=== PATIENT | male | born 1970 | race Caucasian/White ===

== ENCOUNTER 2023-01-27 05:53 | Emergency (ER) | payer OTHER, MEDICAID, SELFPAY ==
[2023-01-27] VITALS (27 sets, daily range): BP systolic 116–156; BP diastolic 60–83; PULSE 69–104; RESP 16; TEMP 36.8–37.6; O2SAT 94–100; BMI 27.5
--- NOTE | 2023-01-27 06:08 | DI.CT.S_ITS ---
PROCEDURE: CT ABDOMEN PELVIS W CON INDICATIONS: rectal pain and drainage after colectomy TECHNIQUE: After the administration of oral and IV contrast, axial sections were acquired from the lung bases to the pubic symphysis. Coronal and sagittal reformats were performed. For radiation dose reduction, the following was used: automated exposure control, adjustment of mA and/or kV according to patient size. COMPARISON: [facility], CT, CT ABDOMEN PELVIS WITH CONTRAST, 01/12/2023, 13:52. [facility], CT, CT ABDOMEN PELVIS WITH CONTRAST, 01/19/2023, 15:09. FINDINGS: Image quality: Excellent. Lung bases: Unremarkable. Heart: Heart size is enlarged, no pericardial effusion is seen. ABDOMEN: Liver: Unremarkable. Gallbladder: Tiny gallstones are again seen in dependent portion of gallbladder. No gallbladder wall thickening. Biliary ducts: No biliary ductal dilatation. Pancreas: Unremarkable. Spleen: Unremarkable. Adrenal Glands: Unremarkable. Kidneys and Ureters: No hydronephrosis or hydroureter.. Stomach and Bowel: Again noted are postsurgical changes from partial bowel resection and right-sided ostomy unchanged from prior study. Surgical anastomosis is no rectum unchanged from prior study. Fluid is noted in presacral space not significantly changed from prior study. Oral contrast is seen in stomach lumen and small bowel loops. No evidence of obstruction. Small bowel wall thickening in mid to left abdomen is seen. No other area of abnormal bowel wall thickening. Peritoneum: No peritoneal free air. No discrete drainable abscess collection. Ventral Wall: No hernia. Small amount of fluid within anterior pelvic wall is seen. Abdominal Nodes: No retroperitoneal or mesenteric adenopathy by size criteria. Small periaortic lymph nodes are seen measures up to 6 mm in size. Vessels: Aorta and inferior vena cava are normal in size. Mild atherosclerotic calcifications are seen in abdominal aorta. PELVIS: Pelvic Organs: Unremarkable. Bladder: Unremarkable. Pelvic Nodes: No enlarged lymph nodes. Miscellaneous: Small bilateral inguinal hernia are seen containing fat. A tiny focus of free air in right inguinal herniation sac is seen. Bones: No suspicious bony lesions. No acute vertebral body compression fracture. IMPRESSION: 1. Stable postsurgical changes from prior partial bowel resection and right-sided ostomy construction. Surgical anastomosis in rectal sigmoid region is grossly intact and unchanged in appearance compared to prior study. Moderate amount of presacral fluid also unchanged from prior study. No peripherally enhancing abscess collection is seen. Tiny pocket of free air within right inguinal herniation sac likely represent at [facility] from recent surgery. No other area of peritoneal free fluid or free air is seen. 2. No evidence of bowel obstruction. Predominantly mid to left-sided small bowel wall thickening concerning for enteritis. 3. Other findings as described above, not significantly changed from prior studies. Dictated by: Prasanna Carpio M.D. on 01/27/2023 at 8:43 Approved by: Prasanna Carpio M.D. on 01/27/2023 at 8:52
--- NOTE | 2023-01-27 06:10 | ED_ITS ---
HPI - Abdominal Pain <Leticia Middleton DO - Last Filed: 01/27/23 22:18> General Chief Complaint: GI Bleed Stated Complaint: Rectal Pain Time Seen by Provider: 01/27/23 06:08 History of Present Illness HPI narrative: Patient 52-year-old male history of colorectal cancer status post chemoradiation with colectomy and temporary ostomy presents today with rectal draining fever chills and increased rectal pain. Surgery was 3 weeks ago. He was seen evaluated at [facility] Emergency Department 1 week ago. He was noted to have leukocytosis he had some fluid which was thought to be postoperative. He continues to have increasing pain. His surgeon and treatment were all done at [facility]. Today he is here for another evaluation. He denies any abdominal pain nausea or vomiting. No chest pain or shortness of breath. He reports that the rectal drainage was mucousy but now it is clear and sometimes bloody Related Data Home Medications Medication Instructions Recorded Confirmed acetaminophen 500 mg tablet 1,000 mg PO Q6HR PRN Pain (Scale 01/27/23 01/27/23 Score 1-3) amoxicillin 875 mg-potassium 1 tab PO BID 01/27/23 01/27/23 clavulanate 125 mg tablet atorvastatin 40 mg tablet 40 mg PO BEDTIME 01/27/23 01/27/23 bupropion HCl 150 mg tablet,12 hr 150 mg PO BID 01/27/23 01/27/23 sustained-release methocarbamol 500 mg tablet 500 mg PO TID PRN Muscle Spasm 01/27/23 01/27/23 nitroglycerin 0.4 mg sublingual See Rx Instructions .Route .COMPLEX 01/27/23 01/27/23 tablet nystatin 100,000 unit/mL oral 5 ml PO QID 01/27/23 01/27/23 suspension ticagrelor 90 mg tablet (Brilinta) 90 mg PO BID 01/27/23 01/27/23 Allergies Allergy/AdvReac Type Severity Reaction Status Date / Time hydrocodone Allergy Severe ITCHING Verified 01/27/23 06:47 oxycodone Allergy Severe ITCHING Verified 01/27/23 06:48 Review of Systems <DO Kamla Cordova Last Filed: 01/27/23 22:18> Review of Systems ROS Unobtainable: All systems reviewed & are unremarkable except as noted in HPI and below Exam <Leticia Middleton DO - Last Filed: 01/27/23 22:18> Initial Vital Signs Initial Vital Signs: Vital Signs Pulse Rate 92 H 01/27/23 05:56 Pulse Oximetry 98 01/27/23 05:56 GENERAL: Alert pleasant 52-year-old male and in no acute distress. HEENT: Head atraumatic,EOMI, pupils reactive, face symmetric, moist mucous membranes CARDIOVASCULAR: Regular rate and rhythm without murmurs, rubs or gallops. RESPIRATORY: Breath sounds equal bilaterally, no wheezes rales or rhonchi. ABDOMEN: Soft, nontender. Normoactive bowel sounds all 4 quadrants. No guarding or rebound. EXTREMITIES: Normal range of motion, no clubbing or edema. Neurovascularly intact NEUROLOGICAL: Alert and oriented x4. SKIN: Warm, dry, no laceration, no petechiae, no rashes or lesions. <Isaias Marie DO - Last Filed: 01/27/23 14:37> Initial Vital Signs Initial Vital Signs: Vital Signs Pulse Rate 92 H 01/27/23 05:56 Pulse Oximetry 98 01/27/23 05:56 Course <Leticia Middleton DO - Last Filed: 01/27/23 22:18> Orders Ordered: Discontinued Medications Acetaminophen (Acetaminophen 325 Mg Tablet) 650 mg PO NOW ONE Stop: 01/27/23 12:48 Last Admin: 01/27/23 12:57 Dose: 650 mg Documented By: LYLA Cyclobenzaprine HCl (Cyclobenzaprine 10 Mg Tablet) 10 mg PO NOW ONE Stop: 01/27/23 09:40 Last Admin: 01/27/23 09:48 Dose: 10 mg Documented By: AT Hydromorphone HCl (Hydromorphone 1 Mg Inj) 1 mg IV NOW ONE Stop: 01/27/23 06:09 Last Admin: 01/27/23 06:30 Dose: 1 mg Documented By: JA Hydromorphone HCl (Hydromorphone 1 Mg Inj) 1 mg IV NOW ONE Stop: 01/27/23 07:46 Last Admin: 01/27/23 07:50 Dose: 1 mg Documented By: LYLA Hydromorphone HCl (Hydromorphone 1 Mg Inj) 1 mg IV NOW ONE Stop: 01/27/23 09:11 Last Admin: 01/27/23 09:18 Dose: 1 mg Documented By: LYLA Hydromorphone HCl (Hydromorphone 0.5 Mg Inj) 0.5 mg IV NOW ONE Stop: 01/27/23 12:37 Last Admin: 01/27/23 12:40 Dose: 0.5 mg Documented By: LYLA Ceftriaxone Sodium 1,000 mg/ (Sodium Chloride) 100 mls @ 200 mls/hr IV NOW ONE Stop: 01/27/23 09:21 Last Infusion: 01/27/23 10:26 Dose: 0 mls/hr Documented By: Admin: 01/27/23 09:33 Dose: 200 mls/hr Documented By: DEWAYNE Vital Signs Vital signs: Vital Signs - 8 hr 01/27/23 14:30 01/27/23 14:30 Pulse Rate 85 Blood Pressure 129/73 Pulse Oximetry 97 <Isaias Marie DO - Last Filed: 01/27/23 14:37> Orders Ordered: Discontinued Medications Acetaminophen (Acetaminophen 325 Mg Tablet) 650 mg PO NOW ONE Stop: 01/27/23 12:48 Last Admin: 01/27/23 12:57 Dose: 650 mg Documented By: LYLA Cyclobenzaprine HCl (Cyclobenzaprine 10 Mg Tablet) 10 mg PO NOW ONE Stop: 01/27/23 09:40 Last Admin: 01/27/23 09:48 Dose: 10 mg Documented By: FLORENCIA Hydromorphone HCl (Hydromorphone 1 Mg Inj) 1 mg IV NOW ONE Stop: 01/27/23 06:09 Last Admin: 01/27/23 06:30 Dose: 1 mg Documented By: JA Hydromorphone HCl (Hydromorphone 1 Mg Inj) 1 mg IV NOW ONE Stop: 01/27/23 07:46 Last Admin: 01/27/23 07:50 Dose: 1 mg Documented By: LYLA Hydromorphone HCl (Hydromorphone 1 Mg Inj) 1 mg IV NOW ONE Stop: 01/27/23 09:11 Last Admin: 01/27/23 09:18 Dose: 1 mg Documented By: LYLA Hydromorphone HCl (Hydromorphone 0.5 Mg Inj) 0.5 mg IV NOW ONE Stop: 01/27/23 12:37 Last Admin: 01/27/23 12:40 Dose: 0.5 mg Documented By: LYLA Ceftriaxone Sodium 1,000 mg/ (Sodium Chloride) 100 mls @ 200 mls/hr IV NOW ONE Stop: 01/27/23 09:21 Last Infusion: 01/27/23 10:26 Dose: 0 mls/hr Documented By: Admin: 01/27/23 09:33 Dose: 200 mls/hr Documented By: DEWAYNE Vital Signs Vital signs: Vital Signs - 8 hr 01/27/23 14:30 01/27/23 14:30 Pulse Rate 85 Blood Pressure 129/73 Pulse Oximetry 97 MDM - Abdominal Pain <Leticia Middleton DO - Last Filed: 01/27/23 22:18> Lab Data 01/27/23 06:00 01/27/23 06:00 Labs: Lab Results 01/27/23 01/27/23 01/27/23 Range/Units 06:00 06:00 06:00 WBC 19.4 H (4.5-11.0) X10^3/uL RBC 3.61 L (4.5-5.9) X10^6/uL Hgb 11.3 L (13.5-17.5) g/dL Hct 33.7 L (41-53) % MCV 93.5 (80-100) fL MCH 31.4 (26-34) PG MCHC 33.6 (30-36) % RDW 13.4 (11.6-14.8) % Plt Count 271 (150-400) X10^3/uL Neut % (Auto) 81.4 H (50-75) % Lymph % (Auto) 2.8 L (25-40) % [place] % (Auto) 6.3 (3-14) % Eos % (Auto) 9.0 H (2-4) % Baso % (Auto) 0.5 (0-2) % Neut # (Auto) 99278 H (1320-5435) /uL Lymph # (Auto) 500 L (2956-2266) /uL [place] # (Auto) 1200 H (0-900) /uL Eos # (Auto) 1700 H (0-450) /uL Baso # (Auto) 100 (0-100) /uL Sodium 136 L (137-145) mmol/L Potassium 3.6 (3.4-5.1) mmol/L Chloride 108 H (98-107) mmol/L Carbon Dioxide 22 (22-32) mmol/L BUN 18 (9-20) mg/dL Creatinine 0.92 (0.66-1.25) mg/dL Estimated GFR > 60 (>60) mL/min BUN/Creatinine Ratio 19.6 (6-22) Glucose 137 H (70-100) mg/dL Lactate 0.6 L (0.7-2.1) mmol/L Calcium 8.2 L (8.4-10.2) mg/dL Total Bilirubin 0.2 (0.2-1.3) mg/dL AST 24 (17-59) IU/L ALT 24 (<50) IU/L Alkaline Phosphatase 144 H (38-126) U/L Total Protein 6.2 L (6.3-8.2) g/dL Albumin 3.2 L (3.5-5.0) g/dL Globulin 3.0 (1.7-4.1) g/dL Albumin/Globulin Ratio 1.1 (1.0-2.8) Lipase 76 (23-300) U/L Procalcitonin (<0.5) ng/mL Urine Color Urine Appearance Urine pH (4.5-8.0) Ur Specific [place] (1.000-1.035) Urine Protein (Negative) Urine Glucose (UA) (Negative) g/dL Urine Ketones (NEGATIVE) Urine Occult Blood (Negative) Urine Nitrate (Negative) Urine Bilirubin (NEGATIVE) Urine Urobilinogen (0.2) E.U./dL Ur Leukocyte Esterase (NEGATIVE) Urine RBC (0-5/HPF) Urine WBC (0-5/HPF) Ur Squamous Epith Cells (0-5/HPF) Urine Bacteria (None) Ur Culture Indicated? 01/27/23 01/27/23 Range/Units 06:00 06:57 WBC (4.5-11.0) X10^3/uL RBC (4.5-5.9) X10^6/uL Hgb (13.5-17.5) g/dL Hct (41-53) % MCV (80-100) fL MCH (26-34) PG MCHC (30-36) % RDW (11.6-14.8) % Plt Count (150-400) X10^3/uL Neut % (Auto) (50-75) % Lymph % (Auto) (25-40) % [place] % (Auto) (3-14) % Eos % (Auto) (2-4) % Baso % (Auto) (0-2) % Neut # (Auto) (4428-2451) /uL Lymph # (Auto) (9581-8431) /uL [place] # (Auto) (0-900) /uL Eos # (Auto) (0-450) /uL Baso # (Auto) (0-100) /uL Sodium (137-145) mmol/L Potassium (3.4-5.1) mmol/L Chloride (98-107) mmol/L Carbon Dioxide (22-32) mmol/L BUN (9-20) mg/dL Creatinine (0.66-1.25) mg/dL Estimated GFR (>60) mL/min BUN/Creatinine Ratio (6-22) Glucose (70-100) mg/dL Lactate (0.7-2.1) mmol/L Calcium (8.4-10.2) mg/dL Total Bilirubin (0.2-1.3) mg/dL AST (17-59) IU/L ALT (<50) IU/L Alkaline Phosphatase (38-126) U/L Total Protein (6.3-8.2) g/dL Albumin (3.5-5.0) g/dL Globulin (1.7-4.1) g/dL Albumin/Globulin Ratio (1.0-2.8) Lipase (23-300) U/L Procalcitonin 0.10 (<0.5) ng/mL Urine Color Yellow Urine Appearance Clear Urine pH 5.5 (4.5-8.0) Ur Specific [place] 1.020 (1.000-1.035) Urine Protein Negative (Negative) Urine Glucose (UA) Negative (Negative) g/dL Urine Ketones Negative (NEGATIVE) Urine Occult Blood Negative (Negative) Urine Nitrate Negative (Negative) Urine Bilirubin Negative (NEGATIVE) Urine Urobilinogen 0.2 (0.2) E.U./dL Ur Leukocyte Esterase Negative (NEGATIVE) Urine RBC None seen (0-5/HPF) Urine WBC None seen (0-5/HPF) Ur Squamous Epith Cells None seen (0-5/HPF) Urine Bacteria None seen (None) Ur Culture Indicated? Cult not indicated Point of care testing: Urine Dip Bedside Urine Glucose Negative Bedside Urine Bilirubin - Negative Bedside Urine Ketone - Negative Urine Specific [place] 1.020 Bedside Urine Occult Blood - Negative Bedside Urine pH 6.0 Bedside Urine Protein - Negative Bedside Urine Urobilinogen - Negative Bedside Urine Nitrite - Negative Bedside Urine Leukocytes - Negative Esterase MDM Narrative Medical decision making narrative: Patient 52-year-old male presenting today with rectal pain 3 weeks postop. Awaiting for [facility] records. CT with IV and oral contrast has ordered waiting for oral contrast 2 through. Patient does have leukocytosis of 19 with a left shift. Blood cultures are pending. Patient signed out to Dr. Marie for further evaluation and disposition <Isaias Marie DO - Last Filed: 01/27/23 14:37> Medical Records Attestation: I reviewed the patient's medical records. Lab Data Attestation: I reviewed the patient's lab results. Labs: Lab Results 01/27/23 01/27/23 01/27/23 Range/Units 06:00 06:00 06:00 WBC 19.4 H (4.5-11.0) X10^3/uL RBC 3.61 L (4.5-5.9) X10^6/uL Hgb 11.3 L (13.5-17.5) g/dL Hct 33.7 L (41-53) % MCV 93.5 (80-100) fL MCH 31.4 (26-34) PG MCHC 33.6 (30-36) % RDW 13.4 (11.6-14.8) % Plt Count 271 (150-400) X10^3/uL Neut % (Auto) 81.4 H (50-75) % Lymph % (Auto) 2.8 L (25-40) % [place] % (Auto) 6.3 (3-14) % Eos % (Auto) 9.0 H (2-4) % Baso % (Auto) 0.5 (0-2) % Neut # (Auto) 69515 H (8261-2141) /uL Lymph # (Auto) 500 L (7590-5676) /uL [place] # (Auto) 1200 H (0-900) /uL Eos # (Auto) 1700 H (0-450) /uL Baso # (Auto) 100 (0-100) /uL Sodium 136 L (137-145) mmol/L Potassium 3.6 (3.4-5.1) mmol/L Chloride 108 H (98-107) mmol/L Carbon Dioxide 22 (22-32) mmol/L BUN 18 (9-20) mg/dL Creatinine 0.92 (0.66-1.25) mg/dL Estimated GFR > 60 (>60) mL/min BUN/Creatinine Ratio 19.6 (6-22) Glucose 137 H (70-100) mg/dL Lactate 0.6 L (0.7-2.1) mmol/L Calcium 8.2 L (8.4-10.2) mg/dL Total Bilirubin 0.2 (0.2-1.3) mg/dL AST 24 (17-59) IU/L ALT 24 (<50) IU/L Alkaline Phosphatase 144 H (38-126) U/L Total Protein 6.2 L (6.3-8.2) g/dL Albumin 3.2 L (3.5-5.0) g/dL Globulin 3.0 (1.7-4.1) g/dL Albumin/Globulin Ratio 1.1 (1.0-2.8) Lipase 76 (23-300) U/L Procalcitonin (<0.5) ng/mL Urine Color Urine Appearance Urine pH (4.5-8.0) Ur Specific [place] (1.000-1.035) Urine Protein (Negative) Urine Glucose (UA) (Negative) g/dL Urine Ketones (NEGATIVE) Urine Occult Blood (Negative) Urine Nitrate (Negative) Urine Bilirubin (NEGATIVE) Urine Urobilinogen (0.2) E.U./dL Ur Leukocyte Esterase (NEGATIVE) Urine RBC (0-5/HPF) Urine WBC (0-5/HPF) Ur Squamous Epith Cells (0-5/HPF) Urine Bacteria (None) Ur Culture Indicated? 01/27/23 01/27/23 Range/Units 06:00 06:57 WBC (4.5-11.0) X10^3/uL RBC (4.5-5.9) X10^6/uL Hgb (13.5-17.5) g/dL Hct (41-53) % MCV (80-100) fL MCH (26-34) PG MCHC (30-36) % RDW (11.6-14.8) % Plt Count (150-400) X10^3/uL Neut % (Auto) (50-75) % Lymph % (Auto) (25-40) % [place] % (Auto) (3-14) % Eos % (Auto) (2-4) % Baso % (Auto) (0-2) % Neut # (Auto) (8632-2139) /uL Lymph # (Auto) (5952-7801) /uL [place] # (Auto) (0-900) /uL Eos # (Auto) (0-450) /uL Baso # (Auto) (0-100) /uL Sodium (137-145) mmol/L Potassium (3.4-5.1) mmol/L Chloride (98-107) mmol/L Carbon Dioxide (22-32) mmol/L BUN (9-20) mg/dL Creatinine (0.66-1.25) mg/dL Estimated GFR (>60) mL/min BUN/Creatinine Ratio (6-22) Glucose (70-100) mg/dL Lactate (0.7-2.1) mmol/L Calcium (8.4-10.2) mg/dL Total Bilirubin (0.2-1.3) mg/dL AST (17-59) IU/L ALT (<50) IU/L Alkaline Phosphatase (38-126) U/L Total Protein (6.3-8.2) g/dL Albumin (3.5-5.0) g/dL Globulin (1.7-4.1) g/dL Albumin/Globulin Ratio (1.0-2.8) Lipase (23-300) U/L Procalcitonin 0.10 (<0.5) ng/mL Urine Color Yellow Urine Appearance Clear Urine pH 5.5 (4.5-8.0) Ur Specific [place] 1.020 (1.000-1.035) Urine Protein Negative (Negative) Urine Glucose (UA) Negative (Negative) g/dL Urine Ketones Negative (NEGATIVE) Urine Occult Blood Negative (Negative) Urine Nitrate Negative (Negative) Urine Bilirubin Negative (NEGATIVE) Urine Urobilinogen 0.2 (0.2) E.U./dL Ur Leukocyte Esterase Negative (NEGATIVE) Urine RBC None seen (0-5/HPF) Urine WBC None seen (0-5/HPF) Ur Squamous Epith Cells None seen (0-5/HPF) Urine Bacteria None seen (None) Ur Culture Indicated? Cult not indicated Point of care testing: Urine Dip Bedside Urine Glucose Negative Bedside Urine Bilirubin - Negative Bedside Urine Ketone - Negative Urine Specific [place] 1.020 Bedside Urine Occult Blood - Negative Bedside Urine pH 6.0 Bedside Urine Protein - Negative Bedside Urine Urobilinogen - Negative Bedside Urine Nitrite - Negative Bedside Urine Leukocytes - Negative Esterase Imaging Data CT scan - abdomen/pelvis: Radiologist's Impression: PROCEDURE:? CT ABDOMEN PELVIS W CON ? INDICATIONS:? rectal pain and drainage after colectomy ? TECHNIQUE:? After the administration of oral and IV contrast, axial sections were acquired from the lung bases to the pubic symphysis.? Coronal and sagittal reformats were performed.? For radiation dose reduction, the following was used:? automated exposure control, adjustment of mA and/or kV according to patient size. ? COMPARISON:? [facility], CT, CT ABDOMEN PELVIS WITH CONTRAST, 01/12/2023, 13:52.? [facility], CT, CT ABDOMEN PELVIS WITH CONTRAST, 01/19/2023, 15:09. ? FINDINGS:? Image quality:? Excellent.? ? Lung bases:? Unremarkable.? ? Heart:? Heart size is enlarged, no pericardial effusion is seen. ? ? ABDOMEN: Liver:? Unremarkable.? ? Gallbladder:? Tiny gallstones are again seen in dependent portion of gallbladder.? No gallbladder wall thickening. Biliary ducts:? No biliary ductal dilatation. Pancreas:? Unremarkable.? ? Spleen:? Unremarkable.? ? Adrenal Glands:? Unremarkable.? ? Kidneys and Ureters:? No hydronephrosis or hydroureter..? ? ? Stomach and Bowel:? Again noted are postsurgical changes from partial bowel resection and right-sided ostomy unchanged from prior study.? Surgical anastomosis is no rectum unchanged from prior study.? Fluid is noted in presacral space not significantly changed from prior study.? Oral contrast is seen in stomach lumen and small bowel loops.? No evidence of obstruction.? Small bowel wall thickening in mid to left abdomen is seen.? No other area of abnormal bowel wall thickening. Peritoneum:? No peritoneal free air.? No discrete drainable abscess collection. ? Ventral Wall: ? No hernia.? Small amount of fluid within anterior pelvic wall is seen. Abdominal Nodes:? No retroperitoneal or mesenteric adenopathy by size criteria.? Small periaortic lymph nodes are seen measures up to 6 mm in size. Vessels:? Aorta and inferior vena cava are normal in size.? Mild atherosclerotic calcifications are seen in abdominal aorta. ? PELVIS: Pelvic Organs:? Unremarkable.? ? Bladder:? Unremarkable.? ? Pelvic Nodes: No enlarged lymph nodes.? Miscellaneous:? Small bilateral inguinal hernia are seen containing fat.? A tiny focus of free air in right inguinal herniation sac is seen. ? Bones:? No suspicious bony lesions.? No acute vertebral body compression fracture. ? ? IMPRESSION:? ? 1. Stable postsurgical changes from prior partial bowel resection and right- sided ostomy construction.? Surgical anastomosis in rectal sigmoid region is grossly intact and unchanged in appearance compared to prior study.? Moderate amount of presacral fluid also unchanged from prior study.? No peripherally enhancing abscess collection is seen.? Tiny pocket of free air within right inguinal herniation sac likely represent at [facility] from recent surgery.? No other area of peritoneal free fluid or free air is seen. ? 2. No evidence of bowel obstruction.? Predominantly mid to left-sided small bowel wall thickening concerning for enteritis.? ? 3. Other findings as described above, not significantly changed from prior studies. MDM Narrative Medical decision making narrative: Patient 52-year-old male presenting today with rectal pain 3 weeks postop. Awaiting for [facility]. CT with IV and oral contrast has ordered waiting for oral contrast 2 through. Patient does have leukocytosis of 19 with a left shift. Blood cultures are pending. Patient signed out to Dr. Marie for further evaluation and disposition Dr marie: Received turned over. Review patient's history and physical exam and workup up to this point. Patient continues to have fairly significant lower abdominal discomfort. He also had a leukocytosis. No fevers. CT scan today is similar to CT scan performed at outside facility a couple days ago. I did discuss the case with WM Cadet at [facility] who was on-call for General surgery. Unable to explain his leukocytosis. There is no other signs of a infection. There was some concern about the fluid in his pelvis this far from the surgery. Plan to be is to transfer the patient to scheduled hospital for further evaluation and treatment. Discussed the need for transfer with the patient. He expressed understanding and agreement. Discharge Plan Departure Patient Disposition: [facility] Clinical Impression: Postoperative abdominal pain Prescriptions: No Action methocarbamol 500 mg tablet 500 mg PO TID PRN (Reason: Muscle Spasm) Patient Comments: take 1 tablet by mouth three times a day NEEDED FOR MUSCLE SPASMS FOR UP TO 7 DAYS nystatin 100,000 unit/mL suspension 5 ml PO QID Patient Comments: swish and swallow 5 milliliters by mouth four times a day for 20 DAYS Rx Instructions: x 20 days acetaminophen 500 mg tablet 1,000 mg PO Q6HR PRN (Reason: Pain (Scale Score 1-3)) Patient Comments: take 2 tablet by mouth every 6 hours if needed for mild pain up t... (REFER TO PRESCRIPTION NOTES). nitroglycerin 0.4 mg tablet, sublingual See Rx Instructions .ROUTE .COMPLEX Rx Instructions: place 1 tablet under the tongue if needed every 5 minutes for katty... (REFER TO PRESCRIPTION NOTES). amoxicillin-pot clavulanate 875-125 mg tablet 1 tab PO BID atorvastatin 40 mg tablet 40 mg PO BEDTIME Patient Comments: take 1 tablet by mouth every evening at bedtime bupropion HCl 150 mg tablet sustained-release 12 hr 150 mg PO BID Patient Comments: take 1 tablet by mouth twice a day Brilinta 90 mg tablet 90 mg PO BID Patient Comments: take 1 tablet by mouth twice a day
[2023-01-27 06:26] LABS: Add Manual Diff / Slide Review NO; Basophils Absolute Auto 100 /uL (0-100); Basophils Percent Auto 0.5 % (0-2); Eosinophils Absolute Auto 1700 /uL (0-450); Hematocrit 33.7 % (41-53); Hemoglobin 11.3 g/dL (13.5-17.5); Lymphocytes Absolute Auto 500 /uL (1100-4500); Lymphocytes Percent Auto 2.8 % (25-40); Mean Corpuscular HGB Conc 33.6 % (30-36); Mean Corpuscular Hemoglobin 31.4 PG (26-34); Mean Corpuscular Volume 93.5 fL (80-100); Monocytes Absolute Auto 1200 /uL (0-900); Monocytes Percent Auto 6.3 % (3-14); Neutrophils Absolute Auto 15800 /uL (1500-7000); Neutrophils Percent Auto 81.4 % (50-75); Platelet Count 271 X10^3/uL (150-400); Red Blood Cell Count 3.61 X10^6/uL (4.5-5.9); Red Cell Distribution Width 13.4 % (11.6-14.8); White Blood Cell Count 19.4 X10^3/uL (4.5-11.0)
[2023-01-27] MEDS: HYDROMORPHONE 1 MG INJ IV ×3 (06:30→09:18)
[2023-01-27 06:31] LABS: Alanine Aminotransferase 24 IU/L (<50); Albumin 3.2 g/dL (3.5-5.0); Albumin Globulin Ratio 1.1 (1.0-2.8); Alkaline Phosphatase 144 U/L (38-126); Aspartate Aminotransferase 24 IU/L (17-59); BUN Creatinine Ratio 19.6 (6-22); Bilirubin Total 0.2 mg/dL (0.2-1.3); Blood Urea Nitrogen 18 mg/dL (9-20); Calcium 8.2 mg/dL (8.4-10.2); Carbon Dioxide 22 mmol/L (22-32); Chloride 108 mmol/L (98-107); Estimated Glomerular Filt Rate > 60 mL/min (>60); Glucose 137 mg/dL (70-100); HEMOLYSIS < 15 (0-50); Lipase 76 U/L (23-300); Potassium 3.6 mmol/L (3.4-5.1); Sodium 136 mmol/L (137-145); Total Protein 6.2 g/dL (6.3-8.2)
[2023-01-27 07:15] LABS: Lactate (Lactic Acid) 0.6 mmol/L (0.7-2.1)
[2023-01-27 08:23] LABS: Appearance Urine UA CLEAR; Bilirubin Urine UA NEGATIVE (NEGATIVE); Color Urine UA YELLOW; Glucose Urine UA NEGATIVE (Negative); Ketones Urine UA NEGATIVE (NEGATIVE); Leukocyte Esterase Urine UA NEGATIVE (NEGATIVE); Nitrite Urine UA NEGATIVE (Negative); Occult Blood Urine UA NEGATIVE (Negative); Protein Urine UA NEGATIVE (Negative); Urobilinogen Urine UA 0.2 E.U./dL (0.2); pH Urine UA 5.5 (4.5-8.0)
[2023-01-27 08:33] LABS: Bacteria Urine None Seen; Culture Indicated Urine Cult Not Indicated; RBC Urine None Seen (0-5/HPF); Squamous Epithelial Cell Urine None Seen (0-5/HPF); WBC Urine None Seen (0-5/HPF)
[2023-01-27] MEDS: cefTRIAXone 1,000 MG in SODIUM CHLORIDE 0.9% 100 ML 200 MG IV (09:33)
[2023-01-27] MEDS: CYCLOBENZAPRINE 10 MG TABLET PO (09:48)
[2023-01-27] MEDS: HYDROMORPHONE 0.5 MG INJ IV (12:40)
[2023-01-27] MEDS: ACETAMINOPHEN 325 MG TABLET 650 MG PO (12:57)
== END 2023-01-27 14:55 | disposition short-term general hospital (02) ==
PROVIDERS: Emergency Medicine; Emergency Provider Emergency Medicine
DX: G89.18 Other acute postprocedural pain (principal); R10.9 Unspecified abdominal pain
CPT/HCPCS: 36415; 74177; 80053; 81001; 81003; 83605; 83690; 84145; 85025; 87040; 96365; 96375; 96376; 99284; J0696; J1170; Q9967

== ENCOUNTER 2023-03-03 14:17 | Emergency (ER) | payer OTHER, MEDICAID, SELFPAY ==
[2023-03-03 14:27] VITALS: BMI 29.9
--- NOTE | 2023-03-03 14:42 | DI.CT.S_ITS ---
PROCEDURE: CT ABDOMEN PELVIS W CON INDICATIONS: abd pain, hx of colon cancer TECHNIQUE: After the administration of intravenous contrast, axial sections acquired from the lung bases to the pubic symphysis. Coronal and sagittal reformats were performed. For radiation dose reduction, the following was used: automated exposure control, adjustment of mA and/or kV according to patient size. COMPARISON: , CT, CT ABDOMEN PELVIS W CON, 01/27/2023, 8:02. [facility], CT, CT ABDOMEN PELVIS WITH CONTRAST, 02/22/2023, 19:48. FINDINGS: Image quality: Good Lower chest: Basal atelectasis. No hiatal hernia. Suspected coronary calcifications. Solid organs: Liver appears unremarkable. No pathologic dilation of the biliary tree or pancreatic duct. Gallbladder is unremarkable. No splenomegaly. No adrenal nodules. Right adrenal thickening is again seen. Persistent left pelvocaliectasis. Vessels and lymph nodes: The main portal vein is patent. No pathologic adenopathy by size criteria. Bowel and peritoneum: Congenital malrotation anatomy. No bowel obstruction. Postsurgical changes of low anterior resection. Right lower quadrant ostomy. Suture lines are again seen. A small peristomal hernia is present. A drain is in place in the presacral collection the size of the collection is slightly decreased, measuring 5.9 x 5.7 x 6 cm, previously 6.4 x 5.9 x 7.5 cm. There is mild surrounding edema. No new intra-abdominal or intrapelvic abscess identified. Body wall: Unremarkable Pelvis: Findings as above. Bladder is unremarkable. Prostate is not well assessed on this study. Bones: No acute or suspicious osseous finding. Partially seen rib deformities. IMPRESSION: Slightly decreased size of presacral collection. Drain is in place. Other stable and incidental findings as above. Dictated by: Sukhdev Padilla M.D. on 03/03/2023 at 15:42 Approved by: Sukhdev Padilla M.D. on 03/03/2023 at 15:49
[2023-03-03 15:10] LABS: Add Manual Diff / Slide Review NO; Basophils Absolute Auto 100 /uL (0-100); Basophils Percent Auto 0.8 % (0-2); Eosinophils Absolute Auto 1400 /uL (0-450); Eosinophils Percent Auto 11.9 % (2-4); Hematocrit 35.4 % (41-53); Hemoglobin 11.9 g/dL (13.5-17.5); Lymphocytes Absolute Auto 900 /uL (1100-4500); Lymphocytes Percent Auto 7.4 % (25-40); Mean Corpuscular HGB Conc 33.6 % (30-36); Mean Corpuscular Hemoglobin 30.5 PG (26-34); Mean Corpuscular Volume 90.7 fL (80-100); Monocytes Absolute Auto 500 /uL (0-900); Monocytes Percent Auto 4.6 % (3-14); Neutrophils Absolute Auto 8900 /uL (1500-7000); Neutrophils Percent Auto 75.3 % (50-75); Platelet Count 258 X10^3/uL (150-400); Red Cell Distribution Width 14.8 % (11.6-14.8); White Blood Cell Count 11.8 X10^3/uL (4.5-11.0)
--- NOTE | 2023-03-03 15:17 | PC.NURSE ---
Patient left department, refused to stop for staff to remove his peripheral IV. Walked out of department. patient returned couple minutes later and was placed back in [place].
[2023-03-03 15:18] LABS: Alanine Aminotransferase 23 IU/L (<50); Albumin 4.2 g/dL (3.5-5.0); Albumin Globulin Ratio 1.3 (1.0-2.8); Alkaline Phosphatase 152 U/L (38-126); Aspartate Aminotransferase 38 IU/L (17-59); BUN Creatinine Ratio 12.6 (6-22); Bilirubin Total 0.3 mg/dL (0.2-1.3); Blood Urea Nitrogen 11 mg/dL (9-20); Calcium 8.7 mg/dL (8.4-10.2); Carbon Dioxide 22 mmol/L (22-32); Chloride 110 mmol/L (98-107); Estimated Glomerular Filt Rate > 60 mL/min (>60); Globulin 3.2 g/dL (1.7-4.1); Glucose 94 mg/dL (70-100); HEMOLYSIS 16 (0-50); Lipase 17 U/L (23-300); Potassium 4.7 mmol/L (3.4-5.1); Sodium 140 mmol/L (137-145); Total Protein 7.4 g/dL (6.3-8.2)
--- NOTE | 2023-03-03 16:57 | PC.NURSE ---
Pt walked out of ED but pt's belongings are still by pt's chair
--- NOTE | 2023-03-03 17:00 | PC.NURSE ---
Patient ambulated out of department again, took out his IV. soils technician cleaned up patient and dressed IV site. Patient agreed to go back and finish evaluation. Dr Goel aware
--- NOTE | 2023-03-03 17:10 | ED_ITS ---
HPI - Abdominal Pain General Chief Complaint: Abdominal Pain Stated Complaint: Groin Pain Time Seen by Provider: 03/03/23 14:42 Source: EMS Mode of arrival: EMS Limitations: no limitations History of Present Illness HPI narrative: This is a 52-year-old male with history of colorectal cancer status post chemoradiation with colectomy and temporary ostomy who presents with complaint of increased abdominal pain. Patient states he is had persistent abdominal pain he is on hydromorphone 2-4 mg every 3-4 hours. He states sometimes his pain is well-controlled and other times not. He will have a lot of pressure in sudden increase in pain. Patient states he sometimes feels hot. He denies any chest pain or shortness of breath. He is had some nausea and vomiting intermittently. He states he has had output from his ostomy that has been liquidy and greenish, no black or bloody stools. He has not had any big changes in amount, frequency or a decrease in output. He states it sometimes feels like it is hard to urinate although he was able to urinate here. He denies dysuria urgency or frequency. He had a drain put in place after having infection develop after his surgery which is still present. He was seen here on the 27 of January. Patient tearful and in and out of the department several times. He notes that he was drinking alcohol today. He states that he is had thoughts of self-harm he does not have a plan he does not describe active intent. Patient notes he does not have a support system in place. He does have primary care, he sees Dr. Smith for his oncology team. He has been referred for counseling but has not been following. He states he is not taking anything for mood. He does use tobacco daily, denies any illicit or recreational drugs. Related Data Home Medications Medication Instructions Recorded Confirmed acetaminophen 500 mg tablet 1,000 mg PO Q6HR PRN Pain (Scale 01/27/23 01/27/23 Score 1-3) amoxicillin 875 mg-potassium 1 tab PO BID 01/27/23 01/27/23 clavulanate 125 mg tablet atorvastatin 40 mg tablet 40 mg PO BEDTIME 01/27/23 01/27/23 bupropion HCl 150 mg tablet,12 hr 150 mg PO BID 01/27/23 01/27/23 sustained-release methocarbamol 500 mg tablet 500 mg PO TID PRN Muscle Spasm 01/27/23 01/27/23 nitroglycerin 0.4 mg sublingual See Rx Instructions .Route .COMPLEX 01/27/23 01/27/23 tablet nystatin 100,000 unit/mL oral 5 ml PO QID 01/27/23 01/27/23 suspension ticagrelor 90 mg tablet (Brilinta) 90 mg PO BID 01/27/23 01/27/23 Previous Rx's Medication Instructions Recorded meloxicam 7.5 mg tablet 7.5 mg PO BID PRN pain #14 tabs 03/03/23 Allergies Allergy/AdvReac Type Severity Reaction Status Date / Time hydrocodone Allergy Severe ITCHING Verified 03/03/23 14:35 morphine Allergy Severe Swelling Verified 03/03/23 17:01 of Lip/Tongue/Throat oxycodone Allergy Severe ITCHING Verified 03/03/23 14:35 Review of Systems Review of Systems ROS Unobtainable: All systems reviewed & are unremarkable except as noted in HPI and below Patient History Social History Smoking Status: Current every day smoker Smoking Status: Current every day smoker alcohol intake frequency: 0-2 drinks per day Substance Use Type: does not use Exam Narrative Exam Narrative: GENERAL: Alert and oriented x three, well-nourished male in mild distress. HEENT: Head normocephalic, atraumatic, EOMI, pupils reactive, face symmetric, moist mucous membranes NECK: Supple, full range of motion CARDIOVASCULAR: Regular rate and rhythm without murmurs, rubs or gallops. RESPIRATORY: Breath sounds equal bilaterally, no wheezes rales or rhonchi. ABDOMEN: Soft, nontender. Normoactive bowel sounds all 4 quadrants. No gu arding or rebound, rigidity, no mass. Patient has drain in place with small amount of clear fluid. Ostomy in place and draining. No signs of infection. : No CVA tenderness EXTREMITIES: Normal range of motion, no clubbing or edema. Neurovascularly intact NEUROLOGICAL: Cranial nerves II through XII grossly intact. Moving all extremities SKIN: Warm, dry, no petechiae, no rashes or lesions. Initial Vital Signs Initial Vital Signs: Vital Signs Pulse Rate 79 03/03/23 17:49 Respiratory Rate 18 03/03/23 17:49 Blood Pressure 158/75 H 03/03/23 17:49 Pulse Oximetry 97 03/03/23 17:49 Oxygen Delivery Method Room Air 03/03/23 17:49 Course Orders Ordered: Discontinued Medications Heparin Sodium (Porcine) (Heparin 500 Unit/5 Ml Port Flush) 500 unit IV PRN PRN PRN Reason: Flush Hydromorphone HCl (Hydromorphone 1 Mg Inj) 1 mg IV NOW ONE Stop: 03/03/23 17:33 Last Admin: 03/03/23 17:45 Dose: 1 mg Documented By: CLAUDINE Morphine Sulfate (Morphine 4 Mg/Ml Inj) 4 mg IV NOW ONE Stop: 03/03/23 14:43 Ondansetron HCl (Ondansetron 4 Mg Odt) 4 mg PO NOW PRN PRN Reason: Nausea And Vomiting Ondansetron HCl (Ondansetron 4 Mg/2 Ml Inj) 4 mg IV NOW PRN PRN Reason: Nausea And Vomiting Vital Signs Vital signs: Vital Signs - 8 hr 03/03/23 17:49 Pulse Rate 79 Respiratory Rate 18 Blood Pressure 158/75 H Pulse Oximetry 97 Oxygen Delivery Method Room Air MDM - Abdominal Pain Lab Data 03/03/23 14:49 03/03/23 14:49 Labs: Lab Results 03/03/23 03/03/23 Range/Units 14:49 14:49 WBC 11.8 H (4.5-11.0) X10^3/uL RBC 3.90 L (4.5-5.9) X10^6/uL Hgb 11.9 L (13.5-17.5) g/dL Hct 35.4 L (41-53) % MCV 90.7 (80-100) fL MCH 30.5 (26-34) PG MCHC 33.6 (30-36) % RDW 14.8 (11.6-14.8) % Plt Count 258 (150-400) X10^3/uL Neut % (Auto) 75.3 H (50-75) % Lymph % (Auto) 7.4 L (25-40) % Pacific % (Auto) 4.6 (3-14) % Eos % (Auto) 11.9 H (2-4) % Baso % (Auto) 0.8 (0-2) % Neut # (Auto) 8900 H (4528-0621) /uL Lymph # (Auto) 900 L (0020-1455) /uL Pacific # (Auto) 500 (0-900) /uL Eos # (Auto) 1400 H (0-450) /uL Baso # (Auto) 100 (0-100) /uL Sodium 140 (137-145) mmol/L Potassium 4.7 (3.4-5.1) mmol/L Chloride 110 H (98-107) mmol/L Carbon Dioxide 22 (22-32) mmol/L BUN 11 (9-20) mg/dL Creatinine 0.87 (0.66-1.25) mg/dL Estimated GFR > 60 (>60) mL/min BUN/Creatinine Ratio 12.6 (6-22) Glucose 94 (70-100) mg/dL Calcium 8.7 (8.4-10.2) mg/dL Total Bilirubin 0.3 (0.2-1.3) mg/dL AST 38 (17-59) IU/L ALT 23 (<50) IU/L Alkaline Phosphatase 152 H (38-126) U/L Total Protein 7.4 (6.3-8.2) g/dL Albumin 4.2 (3.5-5.0) g/dL Globulin 3.2 (1.7-4.1) g/dL Albumin/Globulin Ratio 1.3 (1.0-2.8) Lipase 17 L (23-300) U/L Point of care testing: Urine Dip Bedside Urine Glucose Negative Bedside Urine Bilirubin - Negative Bedside Urine Ketone - Negative Urine Specific [place] 1.000 Bedside Urine Occult Blood - Negative Bedside Urine pH 6.0 Bedside Urine Protein - Negative Bedside Urine Urobilinogen - Negative Bedside Urine Nitrite - Negative Bedside Urine Leukocytes - Negative Esterase Imaging Data CT scan - abdomen/pelvis: Radiologist's Impression: Close Abdomen/Pelvis CT (Signed) Sukhdev Padilla - 03/03/23 Abdomen/Pelvis CT (Signed) Prasanna Carpio - 01/27/[address] [address] [address] Scan Report Signed Patient: Mario Vu MR#: [id number] : 1970 Acct:[id number] Age/Sex: 52 / M Date of Service: 03/03/23 Loc: ED Accession Number: [id number] ?? Procedure: CT abdomen pelvis w con Ordering Provider: Evelia Goel D.O. PROCEDURE:? CT ABDOMEN PELVIS W CON ? INDICATIONS:? abd pain, hx of colon cancer ? TECHNIQUE:? After the administration of intravenous contrast, axial sections acquired from the lung bases to the pubic symphysis.? Coronal and sagittal reformats were performed.? For radiation dose reduction, the following was used:? automated exposure control, adjustment of mA and/or kV according to patient size.? ? COMPARISON:? [facility], CT, CT ABDOMEN PELVIS W CON, 01/27/2023, 8:02.? [facility], CT, CT ABDOMEN PELVIS WITH CONTRAST, 02/22/2023, 19:48. ? FINDINGS:? Image quality:? Good ? Lower chest:? Basal atelectasis.? No hiatal hernia.? Suspected coronary calcifications. ? Solid organs:? Liver appears unremarkable.? No pathologic dilation of the biliary tree or pancreatic duct.? Gallbladder is unremarkable.? No splenomegaly.? No adrenal nodules.? Right adrenal thickening is again seen.? Persistent left pelvocaliectasis. ? Vessels and lymph nodes:? The main portal vein is patent.? No pathologic adenopathy by size criteria. ? Bowel and peritoneum:? Congenital malrotation anatomy.? No bowel obstruction.? Postsurgical changes of low anterior resection.? Right lower quadrant ostomy.? Suture lines are again seen.? A small peristomal hernia is present. ? A drain is in place in the presacral collection the size of the collection is slightly decreased, measuring 5.9 x 5.7 x 6 cm, previously 6.4 x 5.9 x 7.5 cm.? There is mild surrounding edema.? No new intra-abdominal or intrapelvic abscess identified.? ? Body wall:? Unremarkable ? Pelvis:? Findings as above.? Bladder is unremarkable.? Prostate is not well assessed on this study. ? Bones:? No acute or suspicious osseous finding.? Partially seen rib deformities. ? IMPRESSION:? Slightly decreased size of presacral collection.? Drain is in place. ? Other stable and incidental findings as above. ? ? Dictated by: Sukhdev Padilla M.D. on 03/03/2023 at 15:42 ? ? Approved by: Sukhdev Padilla M.D. on 03/03/2023 at 15:49?? MDM Narrative Medical decision making narrative: This is a 52-year-old male who has known history of colon cancer status post chemo and radiation who had ostomy and developed infection. Patient had increase in pain today. He is hemodynamically stable. Labs appear stable overall. Patient's CT shows a decrease in fluid. He has not had any obstructive symptoms has had some nausea and vomiting but none actively with EMS or here. Patient has had alcohol today. He does express some thoughts of self- harm. He met with our social worker palliative care. He does have some instability with his housing. Patient describes thoughts but no specific plan or intent currently. Social work reached out to his care team. Discussed with patient possibility of starting medications but he defers. He does note he has not appointment on the and for ultrasound of his abdomen as well as some additional follow-up in place. Discharge Plan Departure Patient Disposition: Home Clinical Impression: Abdominal pain, Depression with suicidal ideation Activity Restrictions/Additional Instructions: Follow up with your medical team. Your CT imaging shows a decrease in amount of fluid in your abdomen today. I recommend that you establish with a counselor and start a medication for depression this can also help with long-term chronic pain. You can take meloxicam 1 tablet every 12 hours along with your narcotic pain medication. If you're feeling suicidal or having suicidal thoughts, contact the suicide hotline (this is also for self referral for counseling and services): . Please return for worsening pain, persistent vomiting, if you are unable to have bowel movement, difficulty with urination if you are feeling unsafe or having thoughts of harming yourself or others or other new or concerning changes. Prescriptions: New meloxicam 7.5 mg tablet 7.5 mg PO BID PRN (Reason: pain) Qty: 14 0RF No Action methocarbamol 500 mg tablet 500 mg PO TID PRN (Reason: Muscle Spasm) Patient Comments: take 1 tablet by mouth three times a day NEEDED FOR MUSCLE SPASMS FOR UP TO 7 DAYS nystatin 100,000 unit/mL suspension 5 ml PO QID Patient Comments: swish and swallow 5 milliliters by mouth four times a day for 20 DAYS Rx Instructions: x 20 days acetaminophen 500 mg tablet 1,000 mg PO Q6HR PRN (Reason: Pain (Scale Score 1-3)) Patient Comments: take 2 tablet by mouth every 6 hours if needed for mild pain up t... (REFER TO PRESCRIPTION NOTES). nitroglycerin 0.4 mg tablet, sublingual See Rx Instructions .ROUTE .COMPLEX Rx Instructions: place 1 tablet under the tongue if needed every 5 minutes for katty... (REFER TO PRESCRIPTION NOTES). amoxicillin-pot clavulanate 875-125 mg tablet 1 tab PO BID atorvastatin 40 mg tablet 40 mg PO BEDTIME Patient Comments: take 1 tablet by mouth every evening at bedtime bupropion HCl 150 mg tablet sustained-release 12 hr 150 mg PO BID Patient Comments: take 1 tablet by mouth twice a day Brilinta 90 mg tablet 90 mg PO BID Patient Comments: take 1 tablet by mouth twice a day Stand Alone Forms: Patient Portal/API
[2023-03-03] MEDS: HYDROMORPHONE 1 MG INJ IV (17:45)
[2023-03-03 17:49] VITALS: BP 158/75; PULSE 79; RESP 18; O2SAT 97
--- NOTE | 2023-03-03 18:35 | CM.SWNOTE ---
TAX [employer]ER Note Patient is 52 y/o male who presents to ED due to concern for abd and groin pain. Patient has hx of rectal cancer. Patient endorses ongoing treatment through [facility]. In triage, patient reported recent ETOH use prior to ED arrival. ED provider requests TAX [employer]ER meet with patient due to patient's suicidal statements. TAX LAWYER reviews EMR and collective medical regarding patients various hospital encounters at [facility]. Patient has PCP [facility] previously scheduled for tomorrow, patient later states that he canceled the appt. TAX LAWYER meets with patient, patient presents as A/Ox4, patient presents as preoccupied looking for his phone. Patient endorses that as of today he is homeless. Patient denies supports, in patient's chart his sister Denise is listed. TAX LAWYER attempts to find Denise's number but cannot identify it. Patient presents as tearful and continues to state there is nothing you can do for me. Patient endorses SI, endorses today has been a bad day. Patient endorses he has cancer. Patient denies intent or plan regarding SI. Patient endorses he does receive services through [facility]. Patient gives consent for TAX LAWYER to call services regarding patient's change in housing and contact access. Patient endorses that he has used Medicaid transport in the past but proceeded to cancel upcoming PCP appt tomorrow. Medicaid transport does not typically arrive at ED after hours, TAX LAWYER sets up taxi voucher for patient to transport back to his last known address to find his phone and gather belongings. TAX LAWYER calls [facility] and [facility] and leaves VMs regarding patient's housing and phone status. Plan: patient to d/c to home upon medical clearance, patient to f/u with outpatient services. Beth Buchanan, INCLUSION SPECIALIST
[2023-03-03 18:51] VITALS: BP 163/87; PULSE 81; RESP 16; TEMP 37.4; O2SAT 97
== END 2023-03-03 18:54 | disposition home or self-care (01) ==
PROVIDERS: Emergency Provider Emergency Medicine
DX: R10.9 Unspecified abdominal pain (principal); R45.851 Suicidal ideations; F32.A Depression, unspecified
CPT/HCPCS: 36415; 74177; 80053; 81003; 83690; 85025; 96374; 99284; J1170